=== PATIENT | female | born 1985 | race Caucasian/White ===

== ENCOUNTER 2017-10-06 20:19 | Emergency (ER) | payer MEDICARE ==
[2017-10-06 21:02] LABS: BASOPHILS % (AUTO) 0.6 % (0.0-5.0); EOSINOPHILS % (AUTO) 2.8 % (0.0-8.0); HEMATOCRIT 39.5 % (36-48); LYMPHOCYTES % (AUTO) 24.1 % (21.0-51.0); MONOCYTES % (AUTO) 9.3 % (3.0-13.0); NEUTROPHILS % (AUTO) 63.2 % (40.0-77.0); PLATELET COUNT (AUTO) 275 K/uL (130-400); RED BLOOD CELL COUNT(AUTO) 4.34 MIL/uL (4.00-5.50); RED CELL DISTRIBUTION WIDTH 16.3 % (11.0-15.5)
[2017-10-06] MEDS ORDERED: ONDANSETRON HCL MDV 20ML 2 MG/ML VIAL ONE (21:08)
[2017-10-06] MEDS ORDERED: FENTANYL CITRATE PF 50 MCG/1 ML 2ML VIAL ONE ×2 (21:09→23:27)
[2017-10-06 21:29] LABS: CREATININE 0.7 mg/dL (0.5-1.5); POTASSIUM 4.3 mmol/L (3.5-5.1)
[2017-10-06 21:33] LABS: ALBUMIN 3.9 g/dL (3.5-5.0); BILIRUBIN,TOTAL 0.9 mg/dL (0.2-1.0); TOTAL PROTEIN, SERUM 7.4 g/dL (6.0-8.3)
[2017-10-06 22:16] LABS: APPEARANCE,URINE Clear (CLEAR); BILIRUBIN,URINE Negative (NEGATIVE); COLOR,URINE Yellow (YELLOW); GLUCOSE, URINE (UA) Negative (NEGATIVE); KETONES,URINE Negative (NEGATIVE); LEUKOCYTE ESTERASE ,URINE Negative (NEGATIVE); NITRATE,URINE Negative (NEGATIVE); OCCULT BLOOD,URINE Moderate (NEGATIVE); PROTEIN,URINE Negative (NEGATIVE); UROBILINOGEN,URINE 0.2 mg/dL (0.2-1.0)
[2017-10-07] MEDS ORDERED: FENTANYL 50 MCG/HR PATCH TD ONE (00:43)
== END 2017-10-07 01:00 | disposition home or self-care (01) ==
LOC: EDH 20:19
DX: K86.1 Other chronic pancreatitis (principal); G89.29 Other chronic pain; M62.81 Muscle weakness (generalized); Z99.11 Dependence on respirator [ventilator] status; Z88.5 Allergy status to narcotic agent; Z91.041 Radiographic dye allergy status
CPT/HCPCS: 36415; 71045; 80053; 81003; 83690; 85025; 96374; 96375; 96376; 99285; J3010 ×2

== ENCOUNTER 2017-12-08 19:34 | Observation (INO) | payer MEDICARE ==
[~2017-12-08] VITALS: Ht 180.3 cm; Wt 52.3 kg
[2017-12-08 20:07] LABS: BASOPHILS % (AUTO) 0.3 % (0.0-5.0); EOSINOPHILS % (AUTO) 0.7 % (0.0-8.0); HEMATOCRIT 32.2 % (36-48); LYMPHOCYTES % (AUTO) 22.8 % (21.0-51.0); MEAN CORPUSCULAR HGB CONC 35.7 g/dL (32.0-36.0); MEAN CORPUSCULAR VOLUME 89.8 fL (79-99); MONOCYTES % (AUTO) 10.3 % (3.0-13.0); NEUTROPHILS % (AUTO) 65.9 % (40.0-77.0); PLATELET COUNT (AUTO) 260 K/uL (130-400); RED BLOOD CELL COUNT(AUTO) 3.59 MIL/uL (4.00-5.50); RED CELL DISTRIBUTION WIDTH 15.5 % (11.0-15.5); WHITE BLOOD COUNT (AUTO) 7.5 K/uL (4.8-10.8)
[2017-12-08 20:15] LABS: APPEARANCE,URINE Clear (CLEAR); BILIRUBIN,URINE Negative (NEGATIVE); COLOR,URINE Yellow (YELLOW); GLUCOSE, URINE (UA) Negative (NEGATIVE); KETONES,URINE Negative (NEGATIVE); LEUKOCYTE ESTERASE ,URINE Negative (NEGATIVE); NITRATE,URINE Negative (NEGATIVE); OCCULT BLOOD,URINE Trace (NEGATIVE); PROTEIN,URINE Negative (NEGATIVE); UROBILINOGEN,URINE 0.2 mg/dL (0.2-1.0)
[2017-12-08 20:17] LABS: HCG,QUAL RESULT NEGATIVE (NEGATIVE)
[2017-12-08 20:21] LABS: CREATININE 0.6 mg/dL (0.5-1.5); POTASSIUM 4.8 mmol/L (3.5-5.1)
[2017-12-08 20:25] LABS: ALBUMIN 3.8 g/dL (3.5-5.0); BILIRUBIN,TOTAL 1.1 mg/dL (0.2-1.0); TOTAL PROTEIN, SERUM 7.3 g/dL (6.0-8.3)
[2017-12-08 20:26] LABS: BACTERIA,URINE Rare /HPF (None Seen); RBC,URINE 0-1 /HPF (0-1); WBC,URINE None Seen /HPF (0-1)
[2017-12-08 20:27] LABS: SQUAMOUS EPITHELIAL CELL,UR None Seen /HPF (0-2)
[2017-12-08] MEDS ORDERED: FENTANYL CITRATE PF 50 MCG/1 ML 2ML VIAL ONE ×3 (20:36→23:07)
[2017-12-08] MEDS ORDERED: DICYCLOMINE HCL 10 MG/ML 2ML AMP IM ONE (21:37)
[2017-12-08] MEDS ORDERED: HYOSCYAMINE SULFATE 0.125 MG TAB.SUBL SL ONE (21:42)
[2017-12-09 01:15] VITALS: BP 148/72
[2017-12-09] MEDS ORDERED: KETOROLAC TROMETHAMINE 15MG/ML ONE (01:27)
[2017-12-09] MEDS ORDERED: HYDROCODONE/ACETAMINOPHEN 5/325 MG TAB ONE (01:44)
[2017-12-09] MEDS ORDERED: POTASSIUM CHLORIDE 20MEQ/100ML 100 ML IV PRN (01:45)
[2017-12-09] MEDS ORDERED: ZOLPIDEM TARTRATE 5 MG TAB PO PRN (01:45)
[2017-12-09] MEDS ORDERED: POTASSIUM CHLORIDE 20 MEQ ERTAB PO PRN (01:45)
[2017-12-09] MEDS ORDERED: ACETAMINOPHEN 325 MG TAB PO PRN ×2 (01:45)
[2017-12-09] MEDS ORDERED: ONDANSETRON HCL MDV 20ML 2 MG/ML VIAL IVP PRN (01:45)
[2017-12-09] MEDS ORDERED: LIDOCAINE HCL-MPF 1% 2ML VIAL IJ PRN (01:45)
[2017-12-09] MEDS ORDERED: POTASSIUM CHLORIDE 10% ELIXIR 20 MEQ/15 ML UDCUP PO PRN (01:45)
[2017-12-09] MEDS ORDERED: CLONIDINE HCL 0.1 MG TABLET PO PRN (01:45)
[2017-12-09] MEDS ORDERED: MEPERIDINE-PF 25 MG/ML SYG ONE ×2 (01:50→03:55)
[2017-12-09] MEDS ORDERED: MEPERIDINE HCL/PF 25 MG/0.5 ML AMPUL IVP PRN (02:00)
[2017-12-09] MEDS ORDERED: HYDROCODONE/ACETAMINOPHEN 5/325 MG TAB PO PRN ×2 (03:15)
[2017-12-09] MEDS ORDERED: KETOROLAC TROMETHAMINE 15MG/ML IV PRN (03:15)
[2017-12-09] MEDS ORDERED: LORAZEPAM 2 MG/ML 1 ML VIAL IVP PRN (04:00)
[2017-12-09] MEDS ORDERED: MEPERIDINE HCL/PF 25 MG/0.5 ML AMPUL IVP ONE (04:00)
[2017-12-09 04:06] VITALS: BP 118/82
[2017-12-09 04:29] LABS: AMPHET/METH SCREEN,URINE NEGATIVE (NEGATIVE); BARBITURATE SCREEN, URINE NEGATIVE (NEGATIVE); BENZODIAZEPINES SCREEN,URINE NEGATIVE (NEGATIVE); CANNABINOID SCREEN,URINE NEGATIVE (NEGATIVE); COCAINE SCREEN,URINE NEGATIVE (NEGATIVE); OPIATE SCREEN,URINE NEGATIVE (NEGATIVE); PHENCYCLIDINE SCREEN,URINE NEGATIVE (NEGATIVE)
[2017-12-09 05:28] LABS: HEMATOCRIT 30.8 % (36-48); MEAN CORPUSCULAR HEMOGLOBIN 31.5 pg (27.0-33.0); MEAN CORPUSCULAR HGB CONC 35.7 g/dL (32.0-36.0); MEAN CORPUSCULAR VOLUME 88.3 fL (79-99); PLATELET COUNT (AUTO) 241 K/uL (130-400); RED BLOOD CELL COUNT(AUTO) 3.49 MIL/uL (4.00-5.50); RED CELL DISTRIBUTION WIDTH 14.8 % (11.0-15.5); WHITE BLOOD COUNT (AUTO) 8.7 K/uL (4.8-10.8)
[2017-12-09 05:45] LABS: CREATININE 0.8 mg/dL (0.5-1.5)
[2017-12-09 07:46] VITALS: BP 118/79
[2017-12-09] MEDS ORDERED: FAMOTIDINE 20MG TAB 20 MG TAB PO SCH (09:00)
[2017-12-09] MEDS ORDERED: PANC1CAP PO (10:42)
[2017-12-09] MEDS ORDERED: METO50TA18 PO (10:42)
[2017-12-09] MEDS ORDERED: SULF1TAB42 PO (10:42)
[2017-12-09] MEDS ORDERED: LEVO330T2 PO (10:42)
[2017-12-09 11:26] VITALS: BP 123/77
[2017-12-09] MEDS ORDERED: [UNRECOGNIZED DRUG - OTHER] PO SCH (12:00)
[2017-12-09] MEDS ORDERED: LEVOCARNITINE 990 MG PO SCH (14:00)
[2017-12-09] MEDS ORDERED: SULFAMETHOX-TMP DS 800/160 TAB PO SCH (21:00)
[2017-12-09] MEDS ORDERED: METOPROLOL TARTRATE 50 MG TAB PO SCH (21:00)
== END 2017-12-09 13:20 | disposition home or self-care (01) ==
LOC: EDH 19:34 → EDHIP 22:05 → 4AH 12-09 00:46
PROVIDERS: ADMIT Internal Medicine; ATTEND Internal Medicine
DX: J96.10 Chronic respiratory failure, unspecified whether with hypoxia or hypercapnia (principal); Z99.11 Dependence on respirator [ventilator] status; K86.1 Other chronic pancreatitis; D64.9 Anemia, unspecified; I10 Essential (primary) hypertension; Z90.49 Acquired absence of other specified parts of digestive tract; Z93.0 Tracheostomy status
CPT/HCPCS: 36415 ×2; 76700; 80048; 80053; 80305; 81001; 81025; 82150; 83690; 85025; 85027; 96374; 99285; G0378 ×15; J0500; J1885; J2175 ×3; J3010 ×3

== ENCOUNTER → 2020-03-06 | Outpatient (CLI) | payer MEDICARE ==
[~2020-03-06] MED LIST: FENT-77 TD; LEVO330T2 PO; LORA1TAB3 PO; METO50TA18 PO; PANC1CAP PO; TYL3 PO
== END | disposition home or self-care (01) ==
LOC: SHCH 15:30
PROVIDERS: ATTEND Internal Medicine Cardiovascular Disease
DX: R07.9 Chest pain, unspecified (principal); G71.00 Muscular dystrophy, unspecified
CPT/HCPCS: 93306

== ENCOUNTER 2024-11-06 11:43 | Emergency (ER) | payer MEDICARE ==
[~2024-11-06] VITALS: Ht 180.3 cm; Wt 61.2 kg
[2024-11-06 11:45] VITALS: BP 125/59; PULSE 81; RESP 16; TEMP 98.8
--- NOTE | 2024-11-06 12:48 | ERN ---
General Chief Complaint: Headache Stated Complaint: NAUSEA, HEADACHE Time Seen by MD: 11:45 Source: patient History of Present Illness Initial Comments Patient is a 39-year-old female coming in to be evaluated for headache. Per patient she has been having headache for many months. She states that she was seen by her PCP in his advised to follow up in the ER. Allergies: Coded Allergies: rice (Unverified Allergy, Severe, ANAPHYLAXIS, 09/05/18) Aminoglycosides (Unverified Allergy, Intermediate, 09/05/18) Hearing Loss Iodine and Iodide Containing Produc (Unverified Allergy, Intermediate, ) hydromorphone (Unverified Allergy, Intermediate, 12/09/17) morphine (Unverified Allergy, Intermediate, 12/09/17) Quinolones (Unverified Allergy, Unknown, 09/05/18) Paralysis corn (Unverified Allergy, Unknown, 12/09/17) [employer] Home Meds Reported Medications Lorazepam (Lorazepam) 1 Mg Tablet, 1 MG PO DAILY PRN for ANXIETY/AGITATION, TAB 09/05/18 Fentanyl (Fentanyl) 1 Each Patch.td72, 1 EACH TD Q3D 75MCG PATCH-CHANGE Q72HRS 09/05/18 Acetaminophen with Codeine (Tylenol with Codeine #3) 1 Tab Tab, 2 TAB PO Q6HPRN PRN for PAIN LEVEL 6 TO 10, TAB 09/05/18 Pancreat/Bet HCl/Pep/Brom/Pap (Super Enzyme Caps) 1 Each Capsule, 6 EACH PO TID, CAP 12/09/17 Levocarnitine (Carnitor) 330 Mg Tablet, 990 MG PO TID, TAB 12/09/17 Metoprolol Tartrate (Metoprolol Tartrate) 50 Mg Tablet, 50 MG PO BID, TAB 12/09/17 Past Medical History Past Medical History: Other Medical History Other: MITOCHONDRIAL DISEASE Past Surgical History: Cholecystectomy, Other Surgical History Other: TRACHEOSTOMY Female( History) LMP: Oct 15, 2024 ROS Dictation CONSTITUTIONAL: No chills, no fever, no weakness, no diaphoresis, no malaise. HEAD/FACE: No signs of trauma. EENT: No eye pain, no blurred vision, no tearing, no double vision, no ear pain, no ear discharge, no nose pain, no nasal congestion, no throat pain, no throat swelling, no mouth pain. RESPIRATORY: No cough, no orthopnea, no SOB, no stridor, no wheezing. CARDIOVASCULAR: No chest pain, no edema, no palpitations, no syncope. GASTROINTESTINAL/ABDOMINAL: No abdominal pain, no constipation, no diarrhea, no nausea, no vomiting. GENITOURINARY: No abnormal discharge, no dysuria, no frequent urination, no hematuria. No complaints of pain in the genitals. MUSCULOSKELETAL: No back pain, no gout, no joint pain, no joint swelling, no muscle pain, no muscle stiffness, no neck pain. INTEGUMENTARY: No change in color, no change in hair/nails, no dryness, no lesion, no lumps, no rash. NEUROLOGICAL/PSYCH: No anxiety, not depressed, no emotional problem, no headache, no numbness, no pre-existing deficit, no history of seizures, no tremors, no weakness. HEMATOLOGIC/LYMPHATIC: Not anemic, no history of blood clots, no apparent bleeding, no bruising, glands not swollen. All Systems Negative, Except as Noted. Physical Exam Physical Exam Dictation VITAL SIGNS: Reviewed. GENERAL APPEARANCE: Alert, oriented x3, no acute distress, obese. HEAD AND FACE: Non-traumatic. EYES: PERRL, pink conjunctivas, eyelid no trauma, anterior chamber clear. EARS: Pinnas intact and no signs of trauma or erythema. Ear canals clear and no discharge. TMs no erythema. NOSE: No discharge, no bleeding. OROPHARYNX: Mouth normal, teeth no caries, tongue pink. Trach in place NECK: Supple, non-tender, no thyromegaly, no masses, no JVD, no bruits. BREAST: Deferred. CHEST: No tenderness, no crepitus, no paradoxical movement, no retractions. LUNGS: Clear, well-ventilated, symmetric, no rales, no wheezing, no rhonchi, no stridor, good breath sounds bilaterally. HEART: Regular rate, regular rhythm, no murmur, no gallops. VASCULAR: No peripheral edema. ABDOMEN: Soft, positive bowel sounds, nondistended, no guarding, nontender, no rebound, no masses no hepatomegaly, no splenomegaly, no Lora's sign, no hernias. RECTAL: Deferred. GENITAL: Deferred. NEUROLOGICAL: Normal speech, gross motor function intact, gross sensory function intact. MUSCULOSKELETAL: Neck nontender, full range of motion, back nontender, full range of motion. EXTREMITIES: Nontender, full range of motion. SKIN: Color pink, dry, no turgor, no rash, no lacerations, no abrasions, no contusions. LYMPHATICS: Deferred. Results Laboratory and Microbiology Labs Reviewed?: Yes MDM MDM: Differential diagnosis: Chronic headache, trach in place Rationale: Tests considered and ordered secondary to shared decision making include: Previous outside records reviewed: Old ER visits. Risk of complication and/or morbidity or mortality of patient management: None Medications-Per medication reconciliation Was advised by nursing staff that patient eloped without notifying anybody. ED Course Orders Procedure Category Date Status Time Cbc With Differential LAB 11/06/24 Logged 11:53 Basic Metabolic Panel LAB 11/06/24 Logged 11:53 Urinalysis LAB 11/06/24 Logged W/Microscopic 11:53 Creatine Kinase, Total LAB 11/06/24 Logged 11:53 Drug Screen Urine LAB 11/06/24 Logged 11:53 Vital Signs Date Time Temp Pulse Resp B/P (MAP) Pulse Ox O2 Delivery O2 Flow Rate FiO2 11/06/24 11:45 98.8 81 16 125/59 98 Room Air DX & DISP Disposition: AMA Departure Impression: Primary Impression: Headache Condition: Against Medical Advice Referrals: CANDICE MIMS (PCP) Time of Disposition: 12:48 SANDOVAL MYERS MD Nov 06, 2024 12:48
== END 2024-11-06 12:51 | disposition left against medical advice (07) ==
LOC: EDH 11:43
DX: R51.9 Headache, unspecified (principal); Z79.899 Other long term (current) drug therapy; Z88.5 Allergy status to narcotic agent; Z88.8 Allergy status to other drugs, medicaments and biological substances; Z90.49 Acquired absence of other specified parts of digestive tract; Z91.041 Radiographic dye allergy status; Z98.890 Other specified postprocedural states
CPT/HCPCS: 99281